=== PATIENT | female | born 1950 | race Caucasian/White ===

== ENCOUNTER → 2024-01-11 | Outpatient (CLI) | payer MEDICARE, OTHER ==
--- NOTE | 2024-01-11 17:53 | US ---
EXAMINATION TYPE: US venous doppler duplex UE LT DATE OF EXAM: 01/11/2024 COMPARISON: NONE CLINICAL INDICATION: Female, 73 years old with history of LUE; R60.0 Edema; M79.602 pain in left arm; Thick, hard swelling to left upper arm and left lateral breast x 1 day with redness. SIDE PERFORMED: Right Arm: NA Left Arm: Negative for DVT IMPRESSION: 1. Left upper extremity ultrasound negative for deep venous thrombosis
== END | disposition home or self-care (01) ==
LOC: RADUSWWP 13:53
PROVIDERS: ATTEND Family Medicine
DX: M79.602 Pain in left arm (principal); R60.0 Localized edema